=== PATIENT | male | born 1965 | race Two or more races ===

== ENCOUNTER 2017-10-11 09:16 | Emergency (ER) | payer BC ==
[~2017-10-11] VITALS: Ht 167.6 cm; Wt 81.6 kg
[2017-10-11 10:45] LABS: Urine Bacteria NONE SEEN /hpf (None Seen); Urine Blood Negative /uL (Negative); Urine Mucus FEW (None Seen); Urine Specific Gravity 1.023 (1.001-1.035); Urine WBC 1 /hpf (0 - 3)
[2017-10-11 12:24] VITALS: BP 142/78
== END 2017-10-11 13:28 | disposition home or self-care (01) ==
LOC: ER 09:16
DX: N45.1 Epididymitis (principal); N43.3 Hydrocele, unspecified
CPT/HCPCS: 76870; 81001

== ENCOUNTER → 2019-11-29 | Emergency (ER) | payer BC, OTHER ==
[~2019-11-29] VITALS: Ht 175.3 cm; Wt 86.2 kg
[~2019-11-29] MED LIST: SODIUM CHLORIDE 0.9% 2,000 ML IV ONE
[2019-11-29 22:50] LABS: Urine Bacteria NONE SEEN /hpf (None Seen); Urine Blood Negative /uL (Negative); Urine Specific Gravity 1.003 (1.001-1.035); Urine WBC <1 /hpf (0 - 3)
[2019-11-29 23:05] LABS: Amphetamine Screen, Urine NEGATIVE (NEGATIVE); Barbiturate Scree,Urine NEGATIVE (NEGATIVE); Benzodiazephine Screen, Urine NEGATIVE (NEGATIVE); Cannabinoid Screen, Urine NEGATIVE (NEGATIVE); Cocaine Screen, Urine NEGATIVE (NEGATIVE); Opiate Scree,Urine NEGATIVE (NEGATIVE); Phencyclidine Screen, Urine NEGATIVE (NEGATIVE)
[2019-11-29 23:06] LABS: Basophils # (auto) 0.1 10 ^3/uL (0-0.2); Basophils % (auto) 1.4 % (0.0-2.0); Eosinophils # (auto) 0.4 10 ^3/uL (0-0.8); Hematocrit 42.8 % (41.0-53.0); Hemoglobin 14.6 g/dL (13.5-17.5); Lymphocytes # (auto) 2.4 10 ^3/uL (0.4-5.4); Lymphocytes % (auto) 37.9 % (10.0-50.0); Mean Corpuscular Hemoglobin 31.5 pg (28.0-32.0); Mean Corpuscular Hgb Conc. 34.1 g/dL (32.0-36.0); Mean Corpuscular Volume 92.5 fL (80.0-100.0); Monocytes # (auto) 0.5 10 ^3/uL (0-1.3); Monocytes % (auto) 7.3 % (0.0-12.0); Neutrophils % (auto) 46.4 % (37.0-80.0); Nucleated Red Blood Cells % 0.1 %; Platelet Count (auto) 245 10^3/uL (140-450); Red Blood Cells 4.63 10^6/uL (4.5-5.90); Red Cell Distribution Width 13.9 % (11.8-14.3); White Blood Cell 6.4 10^3/uL (4.4-10.8)
[2019-11-29 23:20] LABS: INR 0.97 (0.9-1.15); Partial Thromboplastin Time 23.9 sec (23.64-32.05)
[2019-11-29 23:21] LABS: Albumin 3.4 g/dL (3.4-5.0); Anion Gap 4 (5-15); BUN/Creatinine Ratio 17.5; Blood Urea Nitrogen 11 mg/dL (7-18); Calcium 8.3 mg/dL (8.5-10.1); Carbon Dioxide 26 mmol/L (21-32); Chloride 112 mmol/L (98-107); GFR African American 172 mL/min; GFR Non-African American 142 mL/min; Glucose 89 mg/dL (74-106); Magnesium 2.4 mg/dL (1.6-2.6); Potassium 4.1 mmol/L (3.5-5.1); Sodium 142 mmol/L (136-145)
[2019-11-29 23:30] LABS: Alanine Aminotransferase 66 U/L (16-61); Alkaline Phosphatase 85 U/L (45-117); Aspartate Aminotransferase 40 U/L (15-37); Bilirubin, Total 0.2 mg/dL (0.2-1.0); Total Protein 7.4 g/dL (6.4-8.2)
[2019-11-30 01:00] VITALS: BP 123/46
== END | disposition home or self-care (01) ==
LOC: EDBD 21:56 → EDUNIT# 21:56 → ER 21:56
DX: R41.82 Altered mental status, unspecified (principal); F10.129 Alcohol abuse with intoxication, unspecified; R51 Headache; M54.2 Cervicalgia; Y90.8 Blood alcohol level of 240 mg/100 ml or more
CPT/HCPCS: 36415; 70450; 71045; 72125; 80053; 80307; 80320; 81001; 83735; 84443; 84484; 85025; 85610; 85730; 93005; 96360; 99285; J7030